=== PATIENT | female | born 1945 | race Caucasian/White ===

== ENCOUNTER 2018-09-25 14:42 | Inpatient (IN) | payer MEDICARE, OTHER ==
[~2018-09-25] VITALS: Ht 152.4 cm; Wt 57.3 kg
[2018-09-25] MEDS ORDERED: LEVOXYL50 MCG PO (14:52)
[2018-09-25] MEDS ORDERED: BAYER CHEWABLE81 MG PO (14:52)
[2018-09-25] MEDS ORDERED: OMEPRAZOLE20 M1 PO (14:52)
[2018-09-25 16:16] LABS: BASOPHILS 0.5 % (0-2); EOSINOPHILS 0.8 % (0-7); HEMOGLOBIN 13.2 g/dL (12-16); IMMATURE GRANULOCYTES 0.4 % (0-5); LYMPHOCYTES 9.2 % (15-50); MCH 30.2 pg (26.0-34.0); MCHC 32.2 g/dL (31.0-37.0); MCV 93.8 fL (80.0-100.0); MEAN PLATELET VOLUME 10.9 fL (7.4-10.4); MONOCYTES 5.5 % (2-11); NEUTROPHILS 83.6 % (40-80); PLATELET COUNT 730 10x3/uL (130-400); RBC 4.37 10x6/uL (4.00-5.40); RDW 14.8 % (11.5-14.5); WBC 13.2 10x3/uL (4.8-10.8)
[2018-09-25 17:29] LABS: APTT 28.9 SECONDS (22.8-39.4); INR 1.07 (0.85-1.17); PROTIME 13.4 SECONDS (11.6-15.0)
[2018-09-25 17:33] LABS: ALBUMIN 3.6 g/dL (3.4-5.0); BILIRUBIN - TOTAL 0.22 mg/dL (0.2-1.3); CALCIUM 9.3 mg/dL (8.5-10.1); CARBON DIOXIDE 24.7 mmol/L (21.0-32.0); CREATININE - SERUM 0.9 mg/dL (0.6-1.3); MAGNESIUM - SERUM 1.8 mg/dL (1.8-2.4); POTASSIUM - SERUM 4.7 mmol/L (3.5-5.1); PROTEIN - SERUM 6.9 g/dL (6.4-8.2)
--- NOTE | 2018-09-25 17:47 | NUR ---
PT SITTING IN SEMI-FOWLERS, ALERT AND ORIENTED. NO SIGNS OF DISTRESS. RESPIRATIONS EVEN AND UNALBORED. IV INFUSING ORDERED WITH NO SIGNS OF INFILTRATION. PT DENIES ANY NEEDS. CALL LIGHT IN REACH, WILL CONTINUE TO MONITOR.
--- NOTE | 2018-09-25 18:16 | NUR ---
CORRECTION, CORRECT DISPOSITION BP 118/63
[2018-09-25 18:20] VITALS: BP 136/65
--- NOTE | 2018-09-25 18:21 | NUR ---
BOTH ORDERED CONSULTS, KARINA AWARE OF ORDERED CONSULT.
--- NOTE | 2018-09-25 18:39 | NUR ---
PT ARRIVED TO ROOM VIA WHEELCHAIR. PT WITH BILATERAL WRIST SPLINTS. PT REPORTS PAIN 4/10 IN WRISTS, BUT DENIES NEEDS AT THIS TIME. SCDS ARE PLACED. BED IS IN LOWEST POSITION. RESPIRATIONS ARE EVEN AND UNLABORED. CALL LIGHT AND BEDSIDE TABLE ARE WITHIN REACH. CALL LIGHT IS PLACED WHERE PT IS ABLE TO UTILIZE GIVEN HER FX.
--- NOTE | 2018-09-25 18:50 | MORECARE ---
CASE MANAGEMENT DISCHARGE SUMMARY PATIENT: KENDRICK BAPTISTE UNIT: [id number] ADM DATE: 09/25/18 AGE: 73 : [birth year] SEX: F ROOM/BED: D.2240 AUTHOR: GOVIND,DOC PHYSICIAN: REFERRING PHYSICIAN: WALTER SUMNER MD DATE OF SERVICE: 09/25/18 Discharge Plan Patient Name: KENDRICK BAPTISTE Facility: [facility]:[place] : 1945 Planned Disposition: Anticipated Discharge Date: 09/27/18 Discharge Date: Expected LOS: 2 Initial Reviewer: [email or web address] Initial Review Date: 09/25/2018 Generated: 09/25/18 7:50 pm DCP- Discharge Planning Updated by [email or web address]: Nyla Basurto on 09/25/18 5:[address] Patient Name: KENDRICK BAPTISTE Admission Status: ER Accout number: [id number] Admission Date: 09-25-2018 : 1945 Admission Diagnosis: Attending: WALTER SUMNER Current LOS: 1 Anticipated DC Date: 09-27-2018 Planned Disposition: Primary Insurance: MEDICARE A & B Discharge Planning Comments: CM met with patient to complete initial dc planning assessment. CM educated patient on the CM role and verbal consent given by patient to complete assessment. Patient lives at home alone. She reports she is independent in her ADL's and her IADL's. At discharge patient plans to return home and feels this is a safe discharge. CM discussed availability of home health, rehab services, and medical equipment. Patient denied known discharge needs at this time. CM will continue to follow and will assist as needed with dc plans/needs. Hardware Developer: Nyla Basurto RN, [facility] DCPIA - Discharge Planning Initial Assessment Updated by [email or web address]: Nyla Basurto on 09/25/18 6:47 pm * Is the patient Alert and Oriented? Yes * How many steps to enter\exit or inside your home? One * PCP Dr. Garber * Pharmacy [facility] [address] * Preadmission Environment Home Alone * ADLs Independent * Equipment Bedside Commode * Other Equipment She doesn't use the BSC but h as it. * List name and contact numbers for known caregivers / representatives who currently or will assist patient after discharge: Danae Jose - friend - [phone] Lanie Scott - Friend- [phone] * Verbal permission to speak to the caregivers and representatives has been obtained from the patient. Yes * Community resources currently utilized Other * Additional services required to return to the preadmission environment? No * Can the patient safely return to the preadmission environment? Yes * Has this patient been hospitalized within the prior 30 days at any hospital? No Patient Name: KENDRICK BAPTISTE Page 51516 at 1850 All edits/amendments must be made on the electronic document DICTATION DATE: 09/25/181848 FLEET DIRECTOR: SHANKAR 09/25/181848 RPT#: [id number] MA DATE: STATUS: ADM IN [facility] [address] [place] [address] END OF REPORT
--- NOTE | 2018-09-25 19:18 | NUR ---
ER NOTIFIED TO CONTACT ENGINEERING TO BRING QUAD CALL LIGHT TO PT. PT WITH EXTREME DIFFICULTY PRESSING CALL LIGHT BUTTON.
--- NOTE | 2018-09-25 20:00 | NUR ---
RESTING IN BED RESP UNLABORED IV INFUSING WITHOUT DIFFICULTY SPLINTS AND GAUZE WRAP TO BILATERAL WRIST. ABLE TO USE HANDICAPED CALL LIGHT WITH LIGHT TOUCH. DENIES PAIN AT THIS TIME
[2018-09-25 21:50] VITALS: BP 153/65
[2018-09-26 01:31] VITALS: BP 136/65; BMI 24.6
[2018-09-26 05:26] VITALS: BP 148/60
[2018-09-26 08:49] VITALS: BP 149/65
--- NOTE | 2018-09-26 09:03 | NUR ---
AAOX4. ASSISTED PT TO BR. CO OF PAIN. DILAUDID GIVEN PER MD ORDER. FRIEND AT BS. NO S/S OF ACUTE DISTRESS. CL IN PLACE.
[2018-09-26 09:22] VITALS: Ht 152.4 cm; Wt 57.3 kg
--- NOTE | 2018-09-26 12:57 | NUR ---
1225 - PT HAD RECEIVED 2MG DILAUDID INTRAOPERATIVELY, RESTLESS AND STATING "HELP ME" UPON ARRIVAL TO PACU. WITHIN 5 MIN, PT AHD CALMED, O2 REDUCED TO 6 LPM VIA SM, ALL VSS. WILL CTM.
--- NOTE | 2018-09-26 13:12 | NUR ---
CARE TRANSFERRED TO ELLEN MCCONNELL RN. REPORT GIVEN.
[2018-09-26 14:08] VITALS: BP 156/61
--- NOTE | 2018-09-26 14:14 | NUR ---
REC'D PT FROM [facility]ERY 156/61. 76. 99.6 96% O2@3 LITERS NC. 16. VERY "SLEEPY". AROUSE BY VERBAL STIMULI. NO S/S OF ACUTE DISTRESS. CL IN PLACE. FRIENDS AT BEDSIDE.
--- NOTE | 2018-09-26 19:42 | NUR ---
PT RESTING IN BED. REPOSITIONED PT. BROUGHT PT SANDWICH TRAY. NO S/S OF ACUTE DISTRESS. CL IN PLACE.
--- NOTE | 2018-09-26 20:00 | NUR ---
ALERT RESTING IN BED VISITORS AT BEDSIDE DENIES ANY PAIN OR NEEDS AT THIS TIME DRESSINGS TO BILATERAL WRIST D/I DRAINAGE NOTED TO RIGHT DRESSING MARKED NO FUTHER DRAINAGE NOTED CALL LIGHT IN REACH
[2018-09-26 21:23] VITALS: BP 122/42
[2018-09-27 00:46] VITALS: BP 154/60
[2018-09-27 04:45] VITALS: BP 145/49
[2018-09-27 07:43] LABS: CALCIUM 8.8 mg/dL (8.5-10.1); CARBON DIOXIDE 25.1 mmol/L (21.0-32.0); CHLORIDE - SERUM 105 mmol/L (98-107); CREATININE - SERUM 0.8 mg/dL (0.6-1.3); GLUCOSE 115 mg/dL (74-106); SODIUM 140 mmol/L (136-145); eGFR NON AFRICAN AMERICAN 75 mL/min (90-120)
[2018-09-27 07:45] LABS: CALC OSMOLALITY 280 mosm/kg (275-300); UREA NITROGEN 14 mg/dL (7-18)
[2018-09-27 07:46] LABS: POTASSIUM - SERUM 3.9 mmol/L (3.5-5.1)
--- NOTE | 2018-09-27 07:47 | HP ---
PATIENT: KENDRICK BAPTISTE MEDICAL RECORD: [id number] ACCOUNT: [id number] LOCATION:[address] [id number] : [birth year] ADMISSION DATE: 09/25/18 PCP: JELANI SIERRA MD HISTORY AND PHYSICAL EXAMINATION REASON FOR ADMISSION: Fall with bilateral wrist pain. 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 She impacted her left buttocks as well. She had immediate pain in her left wrist and right wrist as well. They began to swell, so she came to the Emergency Room. She had no syncope. On initial exam, she had evidence of bilateral wrist fractures, ulnar on the left and radial on the right. Additionally, she has a left sacral alar fracture. She is having minimal pain at this time. Denies any recent chest pain, PND, or orthopnea. She has had negative stress test in the recent past. PAST MEDICAL HISTORY: GERD with history of peptic ulcer and esophageal stricture, post-dilatation; hiatal hernia; urinary incontinence; postmenopausal; osteoarthritis; and hypothyroidism. PAST SURGICAL HISTORY: She had a bladder sling, which has not worked well for her; hysterectomy in 1981; appendix removed in 1968; bladder sling as mentioned; and oophorectomy. FAMILY HISTORY: Father at 78 of mesothelioma of the lung. Mother at 77 of lung cancer. One brother had OH at 55 and is currently living and has a defibrillator. HOME MEDICATIONS: Synthroid 50 mcg daily, Prilosec 20 mg a day, and Ecotrin 81 mg a day. ALLERGIES: MORPHINE. REVIEW OF SYSTEMS: CONSTITUTIONAL: No fever, fatigue, or weight change. HEENT: No recent visual change, sinus congestion, or sore throat. RESPIRATORY: No severe cough. CARDIAC: No exertional rest chest pain, claudication, or palpitations. History of negative stress test in the past. GASTROINTESTINAL: No nausea, vomiting, change in stools, or blood per rectum. GENITOURINARY: She has mild stress incontinence. No dysuria. GYNECOLOGIC: No vaginal bleeding. ENDOCRINE: Denies polyuria, polydipsia, heat or cold intolerance. NEUROLOGIC: No history of stroke, TIA, vascular headaches, or seizures. PHYSICAL EXAMINATION: VITAL SIGNS: Temperature 98.2 Fahrenheit, pulse 62 and regular, respirations are 16, and blood pressure 118/50, and O2 sat of 90% on room air. GENERAL: The patient is pleasant, alert, and oriented. HEENT: Eyes are clear. Oropharynx is unremarkable. NECK: No bruits or masses. CHEST: Clear. HEART: Regular rate and rhythm without MGR. PMI appropriate. HISTORY AND PHYSICAL [id number] KENDRICK BAPTISTE BREASTS: Symmetrical. ABDOMEN: Soft and nontender. EXTREMITIES: She has swelling over both wrists bilaterally, left greater than right. She has good motor function of her hands, but has pain on gripping. SLR is negative bilaterally. Some pain over the left posterior sacral area on deep palpation. INTEGUMENT: No bruising appreciated. Also oriented to person, place, and time. Cranial nerves are grossly intact. Gait is not tested currently. LABORATORY DATA: White count is 13,000, H&H of 13 and 41 respectively. Electrolytes normal. BUN is 20, creatinine is 0.9, and glucose 127 nonfasting. INR is 1.07. IMAGING DATA: Chest x-ray shows hiatal hernia. No acute disease. Sacrum and coccyx x-ray shows possible left sacral alar fracture. Coccyx is intact. Right forearm shows distal radial head fracture. Left forearm shows radial and ulnar fracture. EKG shows sinus rhythm with poor anterior R waves. ASSESSMENT: 1. Bilateral wrist fractures with left radial and ulnar and right radial head fractures. 2. Possible left sacral alar fracture. 3. History of GERD, hiatal hernia, osteoarthritis, and hypothyroidism. PLAN: The patient is medically stable for surgery. Dr. Sharp has seen the patient and will operate tomorrow. N.P.O. after midnight. TRANSINT:[id number] Voice Confirmation ID: [id number] DOCUMENT ID: [id number] JELANI SIERRA MD at 0747 CC: [id number] DICTATION DATE: 09/25/181805 MECHANICAL MANUFACTURING TECHNICIAN: 09/25/181912 ADM IN [facility] [address] [place] [address]
--- NOTE | 2018-09-27 08:34 | NUR ---
PT ALERT X 4. BREATH SOUNDS CLEAR BILAT. GAUZE TO BILAT WRISTS, DRESSING CLEAN DRY AND INTACT. IV TO RIGHT AC, PATENT, DRESSING CLEAN DRY AN INTACT. REPORTING PAIN OF 3/10 WILL MONITOR. SCD'S IN PLACE. BREAKFAST IN ROOM. BED LOW, CALL LIGHT IN REACH. NO OTHER NEEDS AT THIS TIME.
[2018-09-27 08:47] VITALS: BP 167/69
[2018-09-27] MEDS ORDERED: KEFLEX500 MG PO (11:25)
--- NOTE | 2018-09-27 11:46 | MORECARE ---
CASE MANAGEMENT DISCHARGE SUMMARY PATIENT: KENDRICK BAPTISTE UNIT: [id number] ADM DATE: 09/25/18 AGE: 73 : [birth year] SEX: F ROOM/BED: D.2240 AUTHOR: GARO FAUST PHYSICIAN: REFERRING PHYSICIAN: WALTER SUMNER MD DATE OF SERVICE: 09/27/18 Discharge Plan Patient Name: KENDRICK BAPTISTE Facility: [facility]:[place] : 1945 Planned Disposition: Anticipated Discharge Date: 09/27/18 Discharge Date: Expected LOS: 2 Initial Reviewer: [email or web address] Initial Review Date: 09/25/2018 Generated: 09/27/18 12:46 pm Comments DCP- Discharge Planning Updated by [email or web address]: Georgie Rojas on 09/27/18 10:[address] Patient Name: KENDRICK BAPTISTE Encounter No: [id number] : 1945 Primary Insurance: MEDICARE A & B Anticipated DC Date: 09-27-2018 Planned Disposition: External Planned Provider: : DCP follow-up note: Patient and family in agreement with discharge plan. States her daughter from [place] and her grand daughter from [place] are coming in today to stay with her. States she has plenty of people to cook, clean and drive her where she needs to go. Denies need for home health. No changes to plan. Case management will follow and assist as needed. Georgie Rojas DCP- Discharge Planning Updated by [email or web address]: Nyla Bausrto on 09/25/18 5:[address] Patient Name: KENDRICK BAPTISTE Admission Status: ER Accout number: [id number] Admission Date: 09-25-2018 : 1945 Admission Diagnosis: Attending: WALTER SUMNER Current LOS: 1 Anticipated DC Date: 09-27-2018 Planned Disposition: Primary Insurance: MEDICARE A & B Discharge Planning Comments: CM met with patient to complete initial dc planning assessment. CM educated patient on the CM role and verbal consent given by patient to complete assessment. Patient lives at home alone. She reports she is independent in her ADL's and her IADL's. At discharge patient plans to return home and feels this is a safe discharge. CM discussed availability of home health, rehab services, and medical equipment. Patient denied known discharge needs at this time. CM will continue to follow and will assist as needed with dc plans/needs. Vp Emerging Media: Nyla Basurto RN, [facility] DCPIA - Discharge Planning Initial Assessment Updated by [email or web address]: Nyla Basurto on 09/25/18 6:47 pm * Is the patient Alert and Oriented? Yes * How many steps to enter\exit or inside your home? One * PCP Dr. Garber * Pharmacy [facility] [address] * Preadmission Environment Home Alone * ADLs Independent * Equipment Bedside Commode * Other Equipment She doesn't use the BSC but h as it. * List name and contact numbers for known caregivers / representatives who currently or will assist patient after discharge: Danae Jose - friend - [phone] Lanie Marquez- [phone] * Verbal permission to speak to the caregivers and representatives has been obtained from the patient. Yes * Community resources currently utilized Other * Additional services required to return to the preadmission environment? No * Can the patient safely return to the preadmission environment? Yes * Has this patient been hospitalized within the prior 30 days at any hospital? No Last DP export: 09/25/18 5:50 p Patient Name: KENDRICK BAPTISTE Page 15440 at 1146 All edits/amendments must be made on the electronic document DICTATION DATE: 09/27/18 114 ENTRY LEVEL BUYER: SHANKAR 09/27/18 114 RPT#: [id number] DC DATE: STATUS: ADM IN [facility] [address] [place] [address] END OF REPORT
[2018-09-27] MEDS ORDERED: NORCO 7.5/325 T1 TA1 PO (12:33)
--- NOTE | 2018-09-27 14:11 | NUR ---
DISCHARGE PAPERWORK SIGNED, ALL QUESTIONS ANSWERED. IV TO LEFT AC DC'D, TIP INTACT. ESCORTED OUT BY WHEELCHAIR.
--- NOTE | 2018-09-27 16:32 | MORECARE ---
CASE MANAGEMENT DISCHARGE SUMMARY PATIENT: KENDRICK BAPTISTE UNIT: [id number] ADM DATE: 09/25/18 AGE: 73 : [birth year] SEX: F ROOM/BED: D.2240 AUTHOR: GOVINDDOC PHYSICIAN: REFERRING PHYSICIAN: WALTER SUMNER MD DATE OF SERVICE: 09/27/18 Discharge Plan Patient Name: KENDRICK BAPTISTE Facility: [facility]:[place] : 1945 Planned Disposition: Home Anticipated Discharge Date: 09/27/18 Discharge Date: 09/27/2018 Expected LOS: 2 Initial Reviewer: [email or web address] Initial Review Date: 09/25/2018 Generated: 09/27/18 5:32 pm Comments DCP- Discharge Planning Updated by [email or web address]: Georgie Rojas on 09/27/18 10:[address] Patient Name: KENDRICK BAPTISTE Encounter No: [id number] : 1945 Primary Insurance: MEDICARE A & B Anticipated DC Date: 09-27-2018 Planned Disposition: External Planned Provider: : DCP follow-up note: Patient and family in agreement with discharge plan. States her daughter from [place] and her grand daughter from [place] are coming in today to stay with her. States she has plenty of people to cook, clean and drive her where she needs to go. Denies need for home health. No changes to plan. Case management will follow and assist as needed. Georgie Rojas DCP- Discharge Planning Updated by [email or web address]: Nyla Basurto on 09/25/18 5:[address] Patient Name: KENDRICK BAPTISTE Admission Status: ER Accout number: [id number] Admission Date: 09-25-2018 : 1945 Admission Diagnosis: Attending: WALTER SUMNER Current LOS: 1 Anticipated DC Date: 09-27-2018 Planned Disposition: Primary Insurance: MEDICARE A & B Discharge Planning Comments: CM met with patient to complete initial dc planning assessment. CM educated patient on the CM role and verbal consent given by patient to complete assessment. Patient lives at home alone. She reports she is independent in her ADL's and her IADL's. At discharge patient plans to return home and feels this is a safe discharge. CM discussed availability of home health, rehab services, and medical equipment. Patient denied known discharge needs at this time. CM will continue to follow and will assist as needed with dc plans/needs. Physiologist: Nyla Basurto RN, [facility] DCPIA - Discharge Planning Initial Assessment Updated by [email or web address]: Nyla Basurto on 09/25/18 6:47 pm * Is the patient Alert and Oriented? Yes * How many steps to enter\exit or inside your home? One * PCP Dr. Garber * Pharmacy [facility] [address] * Preadmission Environment Home Alone * ADLs Independent * Equipment Bedside Commode * Other Equipment She doesn't use the BSC but h as it. * List name and contact numbers for known caregivers / representatives who currently or will assist patient after discharge: Danae Jose - denise - [phone] Lanie Marquez- [phone] * Verbal permission to speak to the caregivers and representatives has been obtained from the patient. Yes * Community resources currently utilized Other * Additional services required to return to the preadmission environment? No * Can the patient safely return to the preadmission environment? Yes * Has this patient been hospitalized within the prior 30 days at any hospital? No Last DP export: 09/27/18 10:46 a Patient Name: KENDRICK BAPTISTE Page 88411 at 1632 All edits/amendments must be made on the electronic document DICTATION DATE: 09/27/18 163 MINERAL ORE PROCESSING LABOURER: SHANKAR 09/27/18 1632 RPT#: [id number] DC DATE:09/27/18 STATUS: DIS IN [facility] [address] [place] [address] END OF REPORT
== END 2018-09-27 14:12 | disposition home or self-care (01) | DRG 511 ==
LOC: D.ER 14:42 → D.EDHOLD 17:45 → D.MS 17:45
PROVIDERS: Emergency Medicine; Orthopaedic Surgery; ADMIT Internal Medicine Nephrology
PROC: 0PSL04Z Reposition Left Ulna with Internal Fixation Device, Open Approach (ICD-10-PCS; 2018-09-26)
PROC: 0PSH04Z Reposition Right Radius with Internal Fixation Device, Open Approach (ICD-10-PCS; 2018-09-26)
PROC: 0PSJ04Z Reposition Left Radius with Internal Fixation Device, Open Approach (ICD-10-PCS; principal; 2018-09-26 13:00)
DX: S52.92XA Unspecified fracture of left forearm, initial encounter for closed fracture (principal); S32.10XA Unspecified fracture of sacrum, initial encounter for closed fracture; S52.91XA Unspecified fracture of right forearm, initial encounter for closed fracture; W01.0XXA Fall on same level from slipping, tripping and stumbling without subsequent striking against object, initial encounter; R94.31 Abnormal electrocardiogram [ECG] [EKG]; E03.9 Hypothyroidism, unspecified; K21.9 Gastro-esophageal reflux disease without esophagitis; K44.9 Diaphragmatic hernia without obstruction or gangrene

== ENCOUNTER 2019-04-13 12:17 | Emergency (ER) | payer MEDICARE, OTHER ==
[~2019-04-13] VITALS: Ht 152.4 cm; Wt 61.4 kg
[~2019-04-13 12:17] MED LIST: BAYER CHEWABLE81 MG PO; KEFLEX500 MG PO; LEVOXYL50 MCG PO; NORCO 7.5/325 T1 TA1 PO; OMEPRAZOLE20 M1 PO
[2019-04-13 12:26] VITALS: Ht 152.4 cm; Wt 61.4 kg
[2019-04-13] MEDS ORDERED: AUGMENTIN 875-11 TAB PO (12:38)
[2019-04-13 13:42] VITALS: BP 113/62
== END 2019-04-13 13:42 | disposition home or self-care (01) ==
LOC: D.ER 12:17
DX: S61.451A Open bite of right hand, initial encounter (principal); W54.0XXA Bitten by dog, initial encounter; Y93.89 Activity, other specified; Y92.89 Other specified places as the place of occurrence of the external cause